=== PATIENT | female | born 1990 | race African-American/Black ===

== ENCOUNTER 2017-08-24 22:07 | Emergency (ER) | payer SELFPAY ==
[2017-08-24 22:10] VITALS: BP 162/103; PULSE 94; RESP 16; TEMP 99; O2SAT 99
--- NOTE | 2017-08-24 23:03 | PD ---
HPI Chief Complaint: Musculoskeletal Complaint Time Seen by Provider: 22:40 Travel History International Travel<30 days: No Contact w/Intl Traveler<30days: No Traveled to known affect area: No History of Present Illness HPI 27-year-old black female presents emergency department complaints of left foot pain after inversion injury trying to run away from lizards. She denies any pop or crack. Pain is moderate. Worse with weightbearing. No alleviating activity. PFSH Past Medical History Asthma: Yes Autoimmune Disease: No Blood Disorders: No Cardiovascular Problems: No Cystic Fibrosis: No Diminished Hearing: No Genitourinary: No Musculoskeletal: No Neurologic: No Psychiatric: No Respiratory: Yes Sickle Cell Disease: No Sleep Apnea: No Tetanus Vaccination: < 5 Years ?: Not LMP: 07/25/17 Past Surgical History Surgical History: No Previous Surgery Appendectomy: No Cholecystectomy: No Social History Alcohol Use: No Tobacco Use: No Substance Use: No Allergies-Medications (Allergen,Severity, Reaction): Coded Allergies: No Known Allergies (Verified Adverse Reaction, Unknown, 08/24/17) Reported Meds & Prescriptions Reported Meds & Active Scripts Active Diclofenac Sodium DR (Diclofenac Sodium) 75 Mg Tabdr 75 Mg PO BID Review of Systems General / Constitutional: No: Fever Eyes: No: Visual changes HENT: No: Headaches Cardiovascular: No: Chest Pain or Discomfort Respiratory: No: Shortness of Breath Gastrointestinal: No: Abdominal Pain Genitourinary: No: Dysuria Musculoskeletal: Positive: Arthralgias, Limited ROM, Edema, Pain Skin: No Rash Neurologic: No: Weakness Psychiatric: No: Depression Endocrine: No: Polydipsia Hematologic/Lymphatic: No: Easy Bruising Physical Exam Narrative GENERAL: This is a well-nourished, well-developed patient, in no apparent distress. SKIN: No rashes, ecchymoses or lesions. Warm and dry. HEAD: Atraumatic. Normocephalic. EYES: PERRL, EOMI, no discharge or injection. No scleral icterus. EARS: Clear NOSE: Nasal turbinates appear normal. THROAT: Mucosa pink and moist. Airway patent. NECK: Trachea midline. supple, moves head freely. LUNGS: Clear to auscultation. CV: Regular in rhythm. ABDOMEN: Soft nontender. EXT: No clubbing cyanosis. Examination of the left lower extremity reveals pain over the fifth metatarsal with some mild swelling. No pain in the medial lateral malleolus. No pain in the Achilles or heel. No pain in the distal forefoot, knee or hip. Intact sensation with good distal pulses. Data Data Last Documented VS Vital Signs Date Time Temp Pulse Resp B/P (MAP) Pulse Ox O2 Delivery O2 Flow Rate FiO2 08/24/17 22:10 99.0 94 16 162/103 (122) 99 Room Air Orders Orders Foot, Complete ([id number]) (08/24/17 22:58) Ice/Cold Pack (08/24/17 22:58) Crutches (08/24/17 22:58) Splint Or Brace Apply/Monitor (08/24/17 23:32) Ed Discharge Order (08/24/17 23:32) Ibuprofen (Motrin) (08/24/17 23:45) MDM Medical Decision Making Medical Screen Exam Complete: Yes Emergency Medical Condition: Yes Medical Record Reviewed: Yes Interpretation(s) Left foot: Negative for acute fracture. Differential Diagnosis MDM: High Differential diagnoses: Fracture, sprain, strain, dislocation, contusion, neurovascular injury Narrative Course X-rays negative for bony injury. Patient given Sukhdeep wrap, crutches, ice pack. Motrin 800 mg by mouth. This is left foot sprain Diagnosis Primary Impression: left foot sprain Patient Instructions: General Instructions Additional Instructions: Rest. Elevation. Ice packs for the next 3 days. Sukhdeep wrap and crutches. No weight-bearing and then progress to weight-bearing as tolerated. Medications as directed Follow-up with an orthopedist or your doctor in one week. Return to the ER if any problems Med/Other Pt SpecificInfo: Prescription(s) given Scripts Diclofenac Sodium DR (Diclofenac Sodium DR) 75 Mg Tabdr 75 MG PO BID, #20 TAB 0 Refills Prov: Dane Friend MD 08/24/17 Disposition: 01 DISCHARGE HOME Condition: Stable Peyman Joy Aug 24, 2017 23:02
--- NOTE | 2017-08-24 23:30 | RADRPT ---
EXAM DATE/TIME: 08/24/2017 23:02 [facility] COMPARISON: No previous studies available for comparison. INDICATIONS : Left foot pain. Patient states she twisted her foot. MEDICAL HISTORY : None. SURGICAL HISTORY : None. ENCOUNTER: Initial ACUITY: 2 days PAIN SCORE: 6/10 LOCATION: Left foot. FINDINGS: Three view examination of the left foot demonstrates no soft tissue swelling, dislocation, or fractur e. The tarsal bones appear intact. The interphalangeal and metatarsophalangeal joints are intact. The calcaneus is intact. Bony mineralization is normal. CONCLUSION: 1. No evidence of recent bony injury. Edson Bhakta MD on August 24, 2017 at 23:27 Board Certified Radiologist. This report was verified electronically.
[2017-08-24] MEDS ORDERED: DICL75TA PO (23:34)
[2017-08-24] MEDS ORDERED: IBUPROFEN 800 MG TAB PO ONE (23:45)
== END 2017-08-24 23:59 | disposition home or self-care (01) ==
LOC: NEPD 22:07
DX: S93.602A Unspecified sprain of left foot, initial encounter (principal); J45.909 Unspecified asthma, uncomplicated; X50.1XXA Overexertion from prolonged static or awkward postures, initial encounter; Z79.899 Other long term (current) drug therapy
CPT/HCPCS: 73630; 99283; E0113